=== PATIENT | female | born 1960 | race Caucasian/White ===

== ENCOUNTER 2020-07-07 11:54 | Emergency (ER) | payer MEDICARE, MEDICAID ==
[~2020-07-07] VITALS: Ht 152 cm; Wt 113.0 kg
--- NOTE | 2020-07-07 12:02 | ED Chest Pain ---
General Stated Complaint: CP Source: patient Exam Limitations: no limitations History of Present Illness Date Seen by Provider: Jul 07, 2020 Time Seen by Provider: 11:59 Initial Comments 60-year-old morbidly obese lady to ER by EMS from [facility] where she developed chest pain and shortness of breath about 1 hour into her dialysis treatment. She resides at [facility]. Staff at [facility] reports that patient rarely receives a full course of dialysis as she becomes anxious partway through and leaves early. She states that her last full course of dialysis was sometime last week. She states she wants to be in a hospital when she gets dialysis and that she "cannot handle it over there". I discussed hospice with her if she does not like dialysis but she states she is not ready for that. Her main complaint on arrival here is chest congestion and shortness of breath. She is obviously dyspneic and fluid overloaded. She had a pacemaker placed at [facility] last week she states. Timing/Duration: changing over time Severity/Quality: moderate Radiation: no radiation Activities at Onset: none Allergies and Home Medications Allergies Coded Allergies: No Known Drug Allergies (Unverified , 07/07/20) Patient Home Medication List Home Medication List Reviewed: Yes Review of Systems Review of Systems Constitutional: see HPI EENTM: No Symptoms Reported Respiratory: See HPI, Shortness of Air Cardiovascular: See HPI, Chest Pain Gastrointestinal: No Symptoms Reported Genitourinary: No Symptoms Reported Skin: no symptoms reported Psychiatric/Neurological: No Symptoms Reported Endocrine: No Symptoms Reported Hematologic/Lymphatic: No Symptoms Reported Physical Exam Vital Signs Vital Signs - First Documented 07/07/20 07/07/20 12:11 12:54 Temp 36.3 Pulse 61 Resp 12 B/P (MAP) 105/48 (67) Pulse Ox 100 O2 Flow Rate 30.00 Capillary Refill : Height, Weight, BMI Height: '" Weight: lbs. oz. kg; BMI Method: General Appearance: Obese, Other (soa, crackles) Respiratory: No Accessory Muscle Use, No Respiratory Distress, Crackles Gastrointestinal: Normal Bowel Sounds, Non Tender, Soft Extremity: Normal Capillary Refill, Normal Inspection, Other (She has wound VAC to the right inguinal region following right iliofemoral infected hematoma after cardiac catheterization in April. She also has some swelling around the pacemaker site to the right upper chest which was initially treated with interventional radiology and aspiration at . This was believed to be hematoma/seroma following pacemaker placement.) Neurologic/Psychiatric: Alert, Oriented x3 Skin: Normal Color, Warm/Dry Progress/Results/Core Measures Results/Orders Lab Results Laboratory Tests Test 07/07/20 12:05 07/07/20 12:46 Range/Units White Blood Count 7.5 4.3-11.0 10^3/uL Red Blood Count 2.36 L 3.80-5.11 10^6/uL Hemoglobin 7.9 L 11.5-16.0 g/dL Hematocrit 26 L 35-52 % Mean Corpuscular Volume 108 H 80-99 fL Mean Corpuscular Hemoglobin 34 25-34 pg Mean Corpuscular Hemoglobin Concent 31 L 32-36 g/dL Red Cell Distribution Width 17.7 H 10.0-14.5 % Platelet Count 189 130-400 10^3/uL Mean Platelet Volume 9.9 9.0-12.2 fL Immature Granulocyte % (Auto) 1 % Neutrophils (%) (Auto) 74 42-75 % Lymphocytes (%) (Auto) 15 12-44 % Monocytes (%) (Auto) 9 0-12 % Eosinophils (%) (Auto) 1 0-10 % Basophils (%) (Auto) 1 0-10 % Neutrophils # (Auto) 5.5 1.8-7.8 10^3/uL Lymphocytes # (Auto) 1.2 1.0-4.0 10^3/uL Monocytes # (Auto) 0.6 0.0-1.0 10^3/uL Eosinophils # (Auto) 0.1 0.0-0.3 10^3/uL Basophils # (Auto) 0.1 0.0-0.1 10^3/uL Immature Granulocyte # (Auto) 0.0 0.0-0.1 10^3/uL Sodium Level 127 L 135-145 MMOL/L Potassium Level 3.8 3.6-5.0 MMOL/L Chloride Level 90 L 98-107 MMOL/L Carbon Dioxide Level 24 21-32 MMOL/L Anion Gap 13 5-14 MMOL/L Blood Urea Nitrogen 27 H 7-18 MG/DL Creatinine 4.40 H 0.60-1.30 MG/DL Estimat Glomerular Filtration Rate 10 BUN/Creatinine Ratio 6 Glucose Level 120 H 70-105 MG/DL Calcium Level 8.4 L 8.5-10.1 MG/DL Corrected Calcium 9.0 8.5-10.1 MG/DL Total Bilirubin 0.4 0.1-1.0 MG/DL Aspartate Amino Transf (AST/SGOT) 31 5-34 U/L Alanine Aminotransferase (ALT/SGPT) 22 0-55 U/L Alkaline Phosphatase 137 H 40-136 U/L Troponin I 0.102 H <0.028 NG/ML Total Protein 7.5 6.4-8.2 GM/DL Albumin 3.2 3.2-4.5 GM/DL Coronavirus 2019 (MICHAEL) Negative Negative Blood Gas Puncture Site RGHT RAD Blood Gas Patient Temperature 36.3 Arterial Blood pH 7.39 7.37-7.43 Arterial Blood Partial Pressure CO2 45 35-45 MMHG Arterial Blood Partial Pressure O2 115 H 79-93 MMHG Arterial Blood HCO3 27 23-27 MMOL/L Arterial Blood Total CO2 27.9 21.0-31.0 MMOL/L Arterial Blood Oxygen Saturation 99 94-100 % Arterial Blood Base Excess 1.8 -2.5-2.5 MMOL/L Edmund Test POS Blood Gas Ventilator Setting NO Blood Gas Inspired Oxygen 4L My Orders Orders - KATHRYN RECINOS APRN Chest 1 View, Ap/Pa Only (07/07/20 11:58) Cbc With Automated Diff (07/07/20 11:58) Comprehensive Metabolic Panel (07/07/20 11:58) Ekg Tracing (07/07/20 11:58) Troponin I (07/07/20 11:58) Ed Iv/Invasive Line Start (07/07/20 11:58) Covid 19 Inhouse Test (07/07/20 12:02) Lorazepam Injection (Ativan Injection) (07/07/20 12:30) Bipap (Bilevel) Set Up (07/07/20 12:30) Arterial Blood Gas (07/07/20 12:31) Medications Given in ED Current Medications Medications Dose Ordered Sig/Symone Route Start Time Stop Time Status Last Admin Dose Admin Lorazepam 0.5 mg ONCE PRN IVP 07/07/20 12:30 07/07/20 12:36 0.5 MG Vital Signs/I&O 07/07/20 07/07/20 12:11 12:54 Temp 36.3 Pulse 61 60 Resp 12 19 B/P (MAP) 105/48 (67) Pulse Ox 100 100 O2 Flow Rate 30.00 Departure Impression Primary Impression: Chest pain Additional Impression: ESRD on hemodialysis Disposition: XFER SHT-TRM HOSP Condition: Stable Departure-Patient Inst. Referrals: NO,LOCAL PHYSICIAN (PCP) Primary Care Physician KATHRYN RECINOS APRN Jul 07, 2020 12:02
[2020-07-07 12:18] LABS: BASOPHILS # (AUTO) 0.1 10^3/uL (0.0-0.1); BASOPHILS % (AUTO) 1 % (0-10); EOSINOPHILS # (AUTO) 0.1 10^3/uL (0.0-0.3); EOSINOPHILS % (AUTO) 1 % (0-10); HEMATOCRIT 26 % (35-52); HEMOGLOBIN 7.9 g/dL (11.5-16.0); LYMPHOCYTES # (AUTO) 1.2 10^3/uL (1.0-4.0); LYMPHOCYTES % (AUTO) 15 % (12-44); MEAN CORPUSCULAR HEMOGLOBIN 34 pg (25-34); MEAN CORPUSCULAR HGB CONC 31 g/dL (32-36); MEAN CORPUSCULAR VOLUME 108 fL (80-99); MEAN PLATELET VOLUME 9.9 fL (9.0-12.2); MONOCYTES # (AUTO) 0.6 10^3/uL (0.0-1.0); MONOCYTES % (AUTO) 9 % (0-12); NEUTROPHILS # (AUTO) 5.5 10^3/uL (1.8-7.8); NEUTROPHILS % (AUTO) 74 % (42-75); PLATELET COUNT 189 10^3/uL (130-400); WHITE BLOOD COUNT 7.5 10^3/uL (4.3-11.0)
[2020-07-07 12:20] LABS: ALBUMIN 3.2 GM/DL (3.2-4.5); POTASSIUM 3.8 MMOL/L (3.6-5.0)
[2020-07-07 12:22] LABS: CALCIUM 8.4 MG/DL (8.5-10.1)
[2020-07-07 12:23] LABS: TOTAL PROTEIN 7.5 GM/DL (6.4-8.2)
[2020-07-07 12:24] LABS: BILIRUBIN,TOTAL 0.4 MG/DL (0.1-1.0)
[2020-07-07 12:26] LABS: CREATININE SERUM 4.4 MG/DL (0.60-1.30)
[2020-07-07] MEDS ORDERED: LORazepam INJ 2 MG/ML (ATIVAN) VIAL IVP PRN (12:30)
--- NOTE | 2020-07-07 12:43 | NUR ---
PT TO BIPAP BY RT
--- NOTE | 2020-07-07 12:46 | Diagnostic Imaging Report ---
INDICATION: Dyspnea. EXAMINATION: Single AP view of chest is obtained. COMPARISON: Comparison is made to study of 01/20/2020. FINDINGS: Heart size and pulmonary vascularity are at the upper limits of normal. No overt edema is identified. There is no pneumothorax or consolidation. Cardiac pacemaker projects over the right anterior chest wall with vascular stent in the left subclavian region. IMPRESSION: Mild cardiomegaly with pulmonary vascularity at the upper limits of normal. Dictated by: Dictated on workstation # [id number]
[2020-07-07 12:56] LABS: ABG BASE EXCESS 1.8 MMOL/L (-2.5-2.5); ABG OXYGEN SATURATION 99 % (94-100); ABG PCO2 45 MMHG (35-45); ABG PH 7.39 (7.37-7.43); ABG PO2 115 MMHG (79-93); ABG TCO2 27.9 MMOL/L (21.0-31.0)
[2020-07-07 13:06] LABS: ALLENS TEST POS; INSPIRED O2 4L; PATIENT TEMP 36.3; VENTILATOR NO
[2020-07-07 16:03] VITALS: BP 105/61
== END 2020-07-07 16:03 | disposition short-term general hospital (02) ==
LOC: EDUNIT# 11:54 → ER 11:55
DX: R07.9 Chest pain, unspecified (principal); N18.6 End stage renal disease; E66.01 Morbid (severe) obesity due to excess calories; Z99.2 Dependence on renal dialysis; Z20.822 Contact with and (suspected) exposure to COVID-19
CPT/HCPCS: 71045; 80053; 82805; 84484; 85025; 93005; 99285; U0002; 36415; 87635